=== PATIENT | male | born 1940 | race Caucasian/White ===

== ENCOUNTER → 2018-12-13 10:13 | Outpatient (CLI) | payer BC, SELFPAY ==
[2016-10-22 10:37] VITALS: BMI 22.5
[2018-12-13 12:27] LABS: Erythrocyte Sedimentation Rate 6 mm/hr (0-20)
[2018-12-13 12:28] LABS: Absolute Lymphocyte Count 1.45 X10^3/uL (0.83-4.51); Absolute Neutrophil Count 4.3 X10^3/uL (2.0-7.7); Basophil# 0.04 X10^3/uL; Basophil% 0.6 % (0-1); Eosinophil# 0.08 X10^3/uL; Eosinophils% 1.3 % (0-5); Hematocrit 46.6 % (40-54); Lymphocyte # 1.45 X10^3/ul (4.0); Lymphocyte % 22.8 % (19-41); Mean Corp Hgb Conc 32.2 g/dL (32-36); Mean Corpuscular Hgb 30.5 pg (27.0-32.0); Mean Corpuscular Volume 94.7 fL (80-94); Mean Platelet Vol. 11.3 fl (6.2-12.0); Monocyte# 0.53 X10^3/uL; Monocyte% 8.3 % (0-10); NRBC Flagged by Analyzer 0 % (0-5); Neutrophil # 4.25 X10^3/uL (2.7-7.7); Neutrophil % 66.7 % (47-70); Platelet Count 236 K/mm3 (150-450); RBC Distribution Width CV 14.3 % (11.6-14.6); RBC Distribution Width SD 50.3 fl (35.1-43.9); Red Blood Count 4.92 M/mm3 (4.6-6.2); White Blood Count 6.4 K/mm3 (4.4-11.0)
[2018-12-13 12:40] LABS: AST(SGOT) 17 U/L (15-37); Alanine Aminotransfer ALT/SGPT 24 U/L (16-61); Albumin, Serum 3.8 g/dL (3.2-5.0); Alkaline Phosphatase 89 U/L (45-117); Anion Gap 4 (5-15); BUN 16 mg/dL (7-18); BUN/Creat Ratio 17.3 RATIO (10-20); Calcium,Total 9.3 mg/dL (8.5-10.1); Chloride 105 mmol/L (98-107); Cholesterol 269 mg/dL (200); Creatinine, Serum 0.92 mg/dL (0.70-1.30); EST Glomerular Filtration Rate 85 mL/min (>60); Est Glom Filt Rate - Afr Amer 102 mL/min (>60); Globulin 3.9 g/dL (2.2-4.2); Glucose 103 mg/dL (74-106); High Density Lipoprotein 50 mg/dL; Potassium 4.6 mmol/L (3.5-5.1); Protein, Total 7.7 g/dL (6.4-8.2); Sodium Level 139 mmol/L (136-145); Triglycerides 148 mg/dL; Very Low Density Lipoprotein 30 mg/dL (5-40)
== END ==
PROVIDERS: Family Provider Family Medicine; PCP Family Medicine; Visit Provider Family Medicine
DX: C21.0 Malignant neoplasm of anus, unspecified (principal); Z13.220 Encounter for screening for lipoid disorders
CPT/HCPCS: 36415; 80053; 80061; 85025; 85652

== ENCOUNTER → 2018-12-30 10:56 | Outpatient (CLI) | payer BC, SELFPAY ==
[2016-10-22 10:37] VITALS: BMI 22.5
[2018-12-30 12:58] LABS: Anion Gap 8 (5-15); BUN 18 mg/dL (7-18); BUN/Creat Ratio 20.2 RATIO (10-20); Calcium,Total 9.1 mg/dL (8.5-10.1); Chloride 108 mmol/L (98-107); Creatinine, Serum 0.89 mg/dL (0.70-1.30); EST Glomerular Filtration Rate 88 mL/min (>60); Est Glom Filt Rate - Afr Amer 106 mL/min (>60); Glucose 102 mg/dL (74-106); Potassium 3.9 mmol/L (3.5-5.1); Sodium Level 143 mmol/L (136-145)
== END ==
PROVIDERS: Family Provider Family Medicine; PCP Family Medicine; Referring Provider Family Medicine; Visit Provider Family Medicine
DX: D64.9 Anemia, unspecified (principal)
CPT/HCPCS: 36415; 80048

== ENCOUNTER → 2019-03-03 15:16 | Outpatient (CLI) | payer MEDICARE, SELFPAY ==
--- NOTE | 2019-03-03 15:25 | RAD_ITS ---
STUDY: X-RAY - ABDOMEN/PELVIS REASON FOR EXAM: Male, 78 years old. Bloating TECHNIQUE: AP supine and upright views of the abdomen and pelvis. 3 images to complete anatomy. COMPARISON: CT abdomen and pelvis June 03, 2016 FINDINGS: Normal visualized lung bases. There is an unremarkable bowel gas pattern. There is no demonstrated free abdominal air. The visualized liver, spleen and kidneys are grossly normal in size and morphology. There are calcified phleboliths in the pelvis. Vascular calcifications are present. S-shaped scoliotic deformity convex left in the lower thoracic and right in the lumbar region noted with degenerative spondylosis. RAD/Abd Inc Decub and/or Erect IMPRESSION: No acute intra-abdominal abnormality identified. No evidence of bowel obstruction. Electronically Signed: Lisette King MD at 15:51 EST , Service support ,
== END ==
PROVIDERS: Family Provider Family Medicine; PCP Family Medicine; Referring Provider Family Medicine; Visit Provider Family Medicine
DX: R14.0 Abdominal distension (gaseous) (principal)
CPT/HCPCS: 74019

== ENCOUNTER → 2019-03-09 11:46 | Outpatient (CLI) | payer MEDICARE, SELFPAY ==
[2016-10-22 10:37] VITALS: BMI 22.5
[2019-03-09 14:29] LABS: AST(SGOT) 20 U/L (15-37); Alanine Aminotransfer ALT/SGPT 38 U/L (16-61); Albumin, Serum 3.9 g/dL (3.2-5.0); Alkaline Phosphatase 104 U/L (45-117); Anion Gap 6 (5-15); BUN 18 mg/dL (7-18); BUN/Creat Ratio 18.7 RATIO (10-20); Calcium,Total 9.6 mg/dL (8.5-10.1); Chloride 104 mmol/L (98-107); Cholesterol 187 mg/dL (200); Creatinine, Serum 0.96 mg/dL (0.70-1.30); EST Glomerular Filtration Rate 81 mL/min (>60); Est Glom Filt Rate - Afr Amer 98 mL/min (>60); Globulin 3.8 g/dL (2.2-4.2); Glucose 110 mg/dL (74-106); High Density Lipoprotein 55 mg/dL; Potassium 4.5 mmol/L (3.5-5.1); Protein, Total 7.7 g/dL (6.4-8.2); Sodium Level 139 mmol/L (136-145); Triglycerides 129 mg/dL; Very Low Density Lipoprotein 26 mg/dL (5-40)
== END ==
PROVIDERS: Family Provider Family Medicine; PCP Family Medicine; Referring Provider Family Medicine; Visit Provider Family Medicine
DX: E78.00 Pure hypercholesterolemia, unspecified (principal)
CPT/HCPCS: 36415; 80053; 80061

== ENCOUNTER → 2019-05-30 13:05 | Outpatient (CLI) | payer MEDICARE, SELFPAY ==
[2016-10-22 10:37] VITALS: BMI 22.5
[2019-05-30 15:52] LABS: Anion Gap 7 (5-15); BUN 14 mg/dL (7-18); BUN/Creat Ratio 16.1 RATIO (10-20); Calcium,Total 9.3 mg/dL (8.5-10.1); Chloride 102 mmol/L (98-107); Creatinine, Serum 0.87 mg/dL (0.70-1.30); EST Glomerular Filtration Rate 91 mL/min (>60); Est Glom Filt Rate - Afr Amer 110 mL/min (>60); Glucose 107 mg/dL (74-106); Potassium 3.6 mmol/L (3.5-5.1); Sodium Level 138 mmol/L (136-145)
[2019-05-30 17:40] LABS: Cholesterol 183 mg/dL (200); High Density Lipoprotein 51 mg/dL; Triglycerides 129 mg/dL; Very Low Density Lipoprotein 26 mg/dL (5-40)
== END ==
PROVIDERS: PCP Family Medicine; Referring Provider Family Medicine; Visit Provider Family Medicine
DX: E78.00 Pure hypercholesterolemia, unspecified (principal); R60.9 Edema, unspecified
CPT/HCPCS: 36415; 80048; 80061

== ENCOUNTER → 2019-12-28 10:13 | Outpatient (CLI) | payer MEDICARE, SELFPAY ==
[2016-10-22 10:37] VITALS: BMI 22.5
[2019-12-28 12:31] LABS: Hematocrit 45.8 % (40-54); Hemoglobin 14.8 g/dL (13.0-16.5); Mean Corp Hgb Conc 32.3 g/dL (32-36); Mean Corpuscular Hgb 29.9 pg (27.0-32.0); Mean Corpuscular Volume 92.5 fL (80-94); Mean Platelet Vol. 11.2 fl (6.2-12.0); Platelet Count 232 K/mm3 (150-450); RBC Distribution Width CV 14.2 % (11.6-14.6); RBC Distribution Width SD 47.9 fl (35.1-43.9); Red Blood Count 4.95 M/mm3 (4.6-6.2); White Blood Count 6.9 K/mm3 (4.4-11.0)
[2019-12-28 12:49] LABS: ALB/GLOB Ratio 1.1 RATIO (0.9-2.4); AST(SGOT) 15 U/L (15-37); Alanine Aminotransfer ALT/SGPT 27 U/L (16-61); Albumin, Serum 3.8 g/dL (3.2-5.0); Alkaline Phosphatase 89 U/L (45-117); Anion Gap 6 (5-15); BUN 16 mg/dL (7-18); BUN/Creat Ratio 18.1 RATIO (10-20); Calcium,Total 8.9 mg/dL (8.5-10.1); Chloride 105 mmol/L (98-107); Cholesterol 275 mg/dL (200); Creatinine, Serum 0.88 mg/dL (0.70-1.30); EST Glomerular Filtration Rate 89 mL/min (>60); Est Glom Filt Rate - Afr Amer 107 mL/min (>60); Globulin 3.6 g/dL (2.2-4.2); Glucose 102 mg/dL (74-106); High Density Lipoprotein 49 mg/dL; PSA,Total - Annual Screen 0.34 ng/mL (0.00-4.00); Potassium 4.2 mmol/L (3.5-5.1); Protein, Total 7.4 g/dL (6.4-8.2); Sodium Level 138 mmol/L (136-145); Triglycerides 149 mg/dL; Very Low Density Lipoprotein 30 mg/dL (5-40)
== END ==
PROVIDERS: PCP Family Medicine; Referring Provider Family Medicine; Visit Provider Family Medicine
DX: E78.00 Pure hypercholesterolemia, unspecified (principal); C21.0 Malignant neoplasm of anus, unspecified; N40.0 Benign prostatic hyperplasia without lower urinary tract symptoms; D64.9 Anemia, unspecified
CPT/HCPCS: 36415; 80053; 80061; 84153; 85027; G0103

== ENCOUNTER 2022-03-29 17:29 | Observation (INO) | payer MEDICARE, MEDICAID, SELFPAY ==
[2022-03-29 17:30] VITALS: BP 125/73; PULSE 118; RESP 34; TEMP 36.6; O2SAT 98; BMI 20.7
[2022-03-29 17:35] VITALS: TEMP 36.6; O2SAT 96
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
--- NOTE | 2022-03-29 17:45 | EKG12_ITS ---
Test Reason : CONFUSION Blood Pressure : / mmHG Vent. Rate : 117 BPM Atrial Rate : 117 BPM P-R Int : 178 ms QRS Dur : 078 ms QT Int : 312 ms P-R-T Axes : 035 037 040 degrees QTc Int : 435 ms Sinus tachycardia with frequent Premature ventricular complexes Low voltage QRS (Limb Leads) Confirmed by KIMBERLY WINSTON, MARA ([id number]), subeditor SHIVA STODDARD ([id number]) on 04/01/2022 10:40:55 AM Referred By: Confirmed By:MARA HARRIS MD
[2022-03-29 18:02] LABS: Absolute Lymphocyte Count 1.33 X10^3/uL (0.83-4.51); Absolute Neutrophil Count 7.7 X10^3/uL (2.0-7.7); Basophil# 0.02 X10^3/uL; Basophil% 0.2 % (0-1); Hematocrit 46.8 % (40-54); Hemoglobin 15.2 g/dL (13.0-16.5); Lymphocyte # 1.33 X10^3/ul (0.83-4.51); Lymphocyte % 13.3 % (19-41); Mean Corp Hgb Conc 32.5 g/dL (32-36); Mean Corpuscular Hgb 29.9 pg (27.0-32.0); Mean Corpuscular Volume 91.9 fL (80-94); Monocyte# 0.92 X10^3/uL; Monocyte% 9.2 % (0-10); NRBC Flagged by Analyzer 0 % (0-5); Platelet Count 184 K/mm3 (150-450); RBC Distribution Width CV 14.4 % (11.6-14.6); RBC Distribution Width SD 48.8 fl (35.1-43.9); Red Blood Count 5.09 M/mm3 (4.6-6.2)
--- NOTE | 2022-03-29 18:10 | RAD_ITS ---
INDICATION: Tachypnea EXAMINATION/TECHNIQUE: X-RAY - XR Chest 1 View COMPARISON: None. FINDINGS: The lungs are clear. Tortuous and calcified thoracic aorta. The heart is not enlarged. No pleural effusion or pneumothorax. Degenerative changes of the thoracic spine. RAD/Chest 1 View (Portable) IMPRESSION: No acute radiographic abnormalities. Electronically Signed: Ayan Bergman MD at 18:32 EST ,
[2022-03-29 18:21] LABS: ALB/GLOB Ratio 1.1 RATIO (0.9-2.4); AST(SGOT) 38 U/L (15-37); Alanine Aminotransfer ALT/SGPT 40 U/L (16-61); Albumin, Serum 3.9 g/dL (3.2-5.0); Alkaline Phosphatase 91 U/L (45-117); Anion Gap 10 (5-15); BUN 23 mg/dL (7-18); BUN/Creat Ratio 22.3 RATIO (10-20); Calcium,Total 8.5 mg/dL (8.5-10.1); Chloride 103 mmol/L (98-107); Creatinine, Serum 1.03 mg/dL (0.70-1.30); EST Glomerular Filtration Rate 74 mL/min (>60); Est Glom Filt Rate - Afr Amer 90 mL/min (>60); Estimated Creatinine Clearance 55.38 ml/min; Globulin 3.5 g/dL (2.2-4.2); Glucose 130 mg/dL (74-106); Potassium 3.9 mmol/L (3.5-5.1); Protein, Total 7.4 g/dL (6.4-8.2); Sodium Level 136 mmol/L (136-145)
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
[2022-03-29 18:53] LABS: Alcohol, Blood (Medical)-Serum < 3.0 mg/dL
[2022-03-29 19:38] VITALS: BP 125/77; PULSE 105; RESP 18; O2SAT 94
--- NOTE | 2022-03-29 19:46 | ED.RN ---
spoke with , Octavia to inquire about pt's previous drinking. states she does not know if he currently drinks alcohol.
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
[2022-03-29 22:10] VITALS: BMI 24.3
[2022-03-29 22:21] VITALS: BP 114/66; PULSE 96; RESP 20; TEMP 37.5; O2SAT 95
[2022-03-29] MEDS: Cephalexin 500 MG Capsule PO (22:29)
[2022-03-30] VITALS (9 sets, daily range): BP systolic 104–146; BP diastolic 66–102; PULSE 84–97; RESP 14–20; TEMP 36.6–37.5; O2SAT 95–97
[2022-03-30 07:37] LABS: Absolute Lymphocyte Count 1.11 X10^3/uL (0.83-4.51); Absolute Neutrophil Count 3.8 X10^3/uL (2.0-7.7); Basophil# 0.01 X10^3/uL; Basophil% 0.2 % (0-1); Eosinophil# 0.01 X10^3/uL; Eosinophils% 0.2 % (0-5); Hematocrit 41.4 % (40-54); Hemoglobin 13.7 g/dL (13.0-16.5); Lymphocyte # 1.11 X10^3/ul (0.83-4.51); Lymphocyte % 19.2 % (19-41); Mean Corp Hgb Conc 33.1 g/dL (32-36); Mean Corpuscular Hgb 30.6 pg (27.0-32.0); Mean Corpuscular Volume 92.4 fL (80-94); Mean Platelet Vol. 11.4 fl (6.2-12.0); Monocyte# 0.83 X10^3/uL; Monocyte% 14.4 % (0-10); NRBC Flagged by Analyzer 0 % (0-5); Neutrophil % 65.8 % (47-70); Platelet Count 168 K/mm3 (150-450); RBC Distribution Width CV 14.5 % (11.6-14.6); RBC Distribution Width SD 49.2 fl (35.1-43.9); Red Blood Count 4.48 M/mm3 (4.6-6.2); White Blood Count 5.8 K/mm3 (4.4-11.0)
[2022-03-30 07:45] LABS: Anion Gap 8 (5-15); BUN 23 mg/dL (7-18); BUN/Creat Ratio 29.9 RATIO (10-20); Calcium,Total 8.2 mg/dL (8.5-10.1); Chloride 105 mmol/L (98-107); Creatinine, Serum 0.77 mg/dL (0.70-1.30); EST Glomerular Filtration Rate 104 mL/min (>60); Est Glom Filt Rate - Afr Amer 126 mL/min (>60); Glucose 100 mg/dL (74-106); Potassium 3.3 mmol/L (3.5-5.1); Sodium Level 137 mmol/L (136-145); Thyroid Stim Hormone (TSH) 4.09 uIU/mL (0.358-3.74)
[2022-03-30] MEDS: Cephalexin 500 MG Capsule PO ×2 (10:39→21:05)
[2022-03-30] MEDS: Furosemide 20 MG Tablet PO (10:39)
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
[2022-03-30] MEDS: Acetaminophen 325 MG Tablet 650 MG PO (21:05)
[2022-03-30] MEDS: MELATONIN 3 MG TABLET PO (21:05)
[2022-03-31 03:47] VITALS: BP 118/92; PULSE 78; RESP 18; TEMP 36.9; O2SAT 98
[2022-03-31 07:29] VITALS: O2SAT 95
[2022-03-31 09:45] VITALS: BP 110/48; PULSE 84; RESP 18; TEMP 37.2; O2SAT 98
[2022-03-31] MEDS: Cephalexin 500 MG Capsule PO ×2 (10:53→20:40)
[2022-03-31] MEDS: Furosemide 20 MG Tablet PO (10:53)
[2022-03-31 16:09] VITALS: BP 136/73; PULSE 104; RESP 18; TEMP 36.7; O2SAT 98
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
[2022-03-31 20:40] VITALS: BP 113/64; PULSE 108; RESP 18; TEMP 37.6; O2SAT 92
[2022-03-31] MEDS: Acetaminophen 325 MG Tablet 650 MG PO (20:40)
[2022-04-01] VITALS (7 sets, daily range): BP systolic 101–150; BP diastolic 59–84; PULSE 84–100; RESP 16–18; TEMP 36.6–38.1; O2SAT 91–96
[2022-04-01] MEDS: Cephalexin 500 MG Capsule PO ×2 (08:48→21:07)
[2022-04-01] MEDS: Furosemide 20 MG Tablet PO (08:49)
[2022-04-01 09:04] LABS: Vitamin B12 230 pg/mL (211-911); Vitamin D,25 Hydroxy 10.9 ng/mL
--- NOTE | 2022-04-01 13:30 | CASEMGMT ---
Social Work? SW received pc from pt step son, Thien, early this morning wanting to discuss pt going to SNF. SW explained hospital can assist with pt going to SNf if pt demonstrates a skilled need. Otherwise pt and family would need to find options for private pay or work on setting up medicaid. SW then called pt , Octavia as Octavia would be legal decision maker since pt struggles with Dementia and not capable of making decisions for self. SW? introduced self and role at the hospital, explained same situation to as to step son earlier this day. Pt begged SW not to send pt home as cannot care for pt. stated has cancer and is on hospice herself andwhen pt is home pt becomes aggressive and agitated and cannot protect self from pt. SW read list of SNF providers including quality and resource use data and consistent with the patient?s preferred geographic region, medical needs, and insurance network from the [employer] Guide to pt . Pt stated wants the farthest SNF possible as fearful that pt will leave and attempt to come home if in [place]. [facility] then [facility]. Due to dementia status and likelihood of being difficult placement SW sent referral to both SNFs. Third choice would be [facility]. Pt has refused PT/OT. these notes will be needed for skilled placement. Will attempt to get pt to work with therapy team. PLAN: SNF, if demonstrates a need. MARNIE Joyner?
--- NOTE | 2022-04-01 16:02 | CASEMGMT ---
TC to pt to review ALANIZ form, no answer at this time. Pt is not A&O x3, unable to complete with pt. Will attempt at a later time.
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
[2022-04-02] VITALS (9 sets, daily range): BP systolic 94–117; BP diastolic 58–76; PULSE 77–96; RESP 16–18; TEMP 36.3–38.2; O2SAT 91–96
[2022-04-02] MEDS: Cephalexin 500 MG Capsule PO (07:30)
[2022-04-02] MEDS: Acetaminophen 325 MG Tablet 650 MG PO (07:30)
[2022-04-02] MEDS: Furosemide 20 MG Tablet PO (07:30)
--- NOTE | 2022-04-02 10:06 | CASEMGMT ---
Addendum entered by Liza Pearson 04/02/22 12:12: SW received pc from Haley at Hospice. Discussed placement for pt and need for pt , who is under Haley's care with Hospice, to complete medicaid ansley. , Octavia, unable to come to hospital to complete medicaid ansley and does not have internet to receive it electronically. Haley discussed intent to visit with Octavia this day and assist Octavai in completing Medicaid ansley. Haley informed that pt will also need medicaid for potential [facility] placement so Haley will make Medicaid ansley a priority. SW emailed medicaid ansley to Haley to print and help Octavia complete. Haley to fax medicaid ansley back to S or return via email to this SW to fax back to [facility]. MARNIE Joyner Original Note: Social Work SW called Hospice SW involved with pt's 's care, Haley. Haley left message from this SW regarding pt case and has knowledge to share regarding pt ability/inability to care for self. SW left message with contact number as Haley did not answer at this time. MARNIE Joyner
--- NOTE | 2022-04-02 16:54 | CASEMGMT ---
BETSY HERNANDEZ NOTE: TC to d/t pt is confused. ALANIZ form explained re: Observation status for treatment of debility. Explained hospitalization will be paid per his insurance policy for Outpatient billing and condition will continue to be evaluated for Inpt necessity. Also let know that [facility] sends paper in the billing packet with their phone number if questions arise. Form signed via telephone signature by this BETSY HERNANDEZ and BETSY Armenta, copy made and placed in chart, and original placed in pt's room. Casimiro AMADOR RN, CM
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
[2022-04-03 02:27] VITALS: BP 105/64; PULSE 80; RESP 18; TEMP 38.2; O2SAT 94
[2022-04-03] MEDS: Acetaminophen 325 MG Tablet 650 MG PO (02:35)
[2022-04-03 08:15] VITALS: BP 116/72; PULSE 72; RESP 16; TEMP 37; O2SAT 93
[2022-04-03] MEDS: Furosemide 20 MG Tablet PO (08:26)
--- NOTE | 2022-04-03 09:39 | CASEMGMT ---
Social Work SW received message that [facility] can accept. SW left VM and sent message via [employer] informing that pt is covid positive, can they still accept? Waiting on determination. Pt will need precert prior to admission. Updated clinicals sent via [employer]. Plan: [facility], pending precert MARNIE Taylor
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
--- NOTE | 2022-04-03 13:03 | CASEMGMT ---
Addendum entered by Mary Rasheed 04/03/22 13:53: Pt states she completed Medicaid application last evening with help of hospice SW. Phone call to SHAYY De Leon at [facility] and left requesting medicaid ansley be faxed to SHAYY. MARNIE Taylor Original Note: Social Work Return call from [facility] and they are now unable to accept pt. [facility] not responding. Phone call to pt Octavia and informed. Octaiva requesting a facility in [facility] or [facility]. [facility] unable to accept. Will await determination from other facilities. MARNIE Howard
[2022-04-03 14:10] VITALS: BP 94/51; PULSE 90; RESP 15; TEMP 37.2; O2SAT 94
--- NOTE | 2022-04-03 15:31 | CASEMGMT ---
SHAYY Note SHAYY called patient's , Octavia. Arin stated that patient talked about seeing a psychiatrist and tests and diagnosis when he was in and out of senior living. Arin said that patient's personality changes alot. Arin said that patient is not on any psychiatric medication, no mental health diagnosis that she is aware of, no counselor or casemanager that she is aware of. Arin said that she is not aware of any psychiatric hospitalizations for patient. Patient has not had any emergency MH services including [facility] or residential programming.n SHAYY completed PASSR with this information. Tanvi WIGGINS
--- NOTE | 2022-04-03 17:25 | CASEMGMT ---
Social Work The following facilities are unable to accept pt: [facility], [facility], [facility], [facility], [facility], [facility]. [facility] and [facility] have not responded. SHAYY spoke with Haley, pt's 's opinion polls survey worker. Update provided on the above issues with SNF placement. Haley states she is in close contact with pt and pt would be willing for pt to be in any SNF that can be found. Referral sent to [facility]. Haley states she assisted in completing Medicaid application online with confirmation #[id number]. SHAYY sent email to [facility] requesting pending Medicaid number. Plan: SNF, pending accepting facility and MARNIE Gonzáles
[2022-04-03 20:01] VITALS: BP 123/64; PULSE 97; RESP 16; TEMP 37.2; O2SAT 93
[2022-04-04 04:02] VITALS: BP 117/62; PULSE 86; RESP 16; TEMP 37.2; O2SAT 93
[2022-04-04 05:28] LABS: Absolute Lymphocyte Count 0.98 X10^3/uL (0.83-4.51); Absolute Neutrophil Count 3.4 X10^3/uL (2.0-7.7); Basophil# 0.01 X10^3/uL; Basophil% 0.2 % (0-1); Hemoglobin 13.5 g/dL (13.0-16.5); Lymphocyte # 0.98 X10^3/ul (0.83-4.51); Lymphocyte % 20.1 % (19-41); Mean Corp Hgb Conc 33.8 g/dL (32-36); Mean Corpuscular Hgb 30.1 pg (27.0-32.0); Mean Corpuscular Volume 89.3 fL (80-94); Monocyte# 0.46 X10^3/uL; Monocyte% 9.4 % (0-10); NRBC Flagged by Analyzer 0 % (0-5); Neutrophil # 3.41 X10^3/uL (2.7-7.7); Neutrophil % 69.9 % (47-70); Platelet Count 225 K/mm3 (150-450); RBC Distribution Width CV 14.2 % (11.6-14.6); RBC Distribution Width SD 46.4 fl (35.1-43.9); Red Blood Count 4.48 M/mm3 (4.6-6.2); White Blood Count 4.9 K/mm3 (4.4-11.0)
[2022-04-04 05:54] LABS: Anion Gap 9 (5-15); BUN 20 mg/dL (7-18); BUN/Creat Ratio 22.9 RATIO (10-20); Calcium,Total 8.1 mg/dL (8.5-10.1); Chloride 106 mmol/L (98-107); Creatinine, Serum 0.87 mg/dL (0.70-1.30); EST Glomerular Filtration Rate 90 mL/min (>60); Est Glom Filt Rate - Afr Amer 108 mL/min (>60); Estimated Creatinine Clearance 64.37 ml/min; Glucose 126 mg/dL (74-106); Potassium 3.1 mmol/L (3.5-5.1); Sodium Level 141 mmol/L (136-145)
[2022-04-04 08:55] VITALS: O2SAT 92
[2022-04-04 09:22] VITALS: BP 130/74; PULSE 99; RESP 16; TEMP 37.2; O2SAT 93
[2022-04-04] MEDS: Furosemide 20 MG Tablet PO (09:40)
[2022-04-04] MEDS: Potassium Chloride Oral Tablet 20 MEQ 60 MEQ PO (09:40)
--- NOTE | 2022-04-04 10:29 | CASEMGMT ---
Social work Phone call to pt and updated that several out of the area referrals have been made and are unable to accept pt. SW informed that [facility] is able to accept pt. Pt is agreeable to pt going to [facility]. SW updated [facility] and precert has been started at this time. Plan: [facility], pending precert MARNIE Taylor
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
[2022-04-04 15:26] VITALS: BP 106/53; PULSE 84; RESP 16; TEMP 36.4; O2SAT 93
--- NOTE | 2022-04-04 18:29 | CASEMGMT ---
Addendum entered by Mary Rasheed 04/04/22 18:30: PASRR completed in [facility] in the event of weekend discharge. MARNIE Frank Original Note: Social Work SW checked with SW and precert has not yet been obtained. Pt to remain at [facility] until precert given. CC to call nursing unit over the weekend should precert be obtained. Plan: [facility], pending precert MARNIE Frank
[2022-04-04 20:34] VITALS: BP 124/71; PULSE 86; RESP 16; TEMP 36.7; O2SAT 93
[2022-04-05 03:02] VITALS: BP 110/67; PULSE 95; RESP 18; TEMP 37.1; O2SAT 93
[2022-04-05 09:00] VITALS: BP 111/70; PULSE 87; RESP 16; TEMP 36.4; O2SAT 92
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
[2022-04-05] MEDS: Furosemide 20 MG Tablet PO (10:00)
[2022-04-05 14:15] VITALS: BP 106/64; PULSE 81; RESP 16; TEMP 36.4; O2SAT 98
[2022-04-05 20:07] VITALS: BP 101/50; PULSE 94; RESP 18; TEMP 37.2; O2SAT 92
[2022-04-06 03:00] VITALS: BP 121/64; PULSE 77; RESP 18; TEMP 37.2; O2SAT 92
--- NOTE | 2022-04-06 04:27 | NURSING ---
Addendum entered by Evan Cantu 04/06/22 04:29: noticed at 0300 Original Note: IV to RAC with notable redness. removed to see a 2cm open area with purulent drainage. 2x2s applied with pressure
[2022-04-06 08:05] LABS: Anion Gap 8 (5-15); BUN 20 mg/dL (7-18); BUN/Creat Ratio 25.3 RATIO (10-20); Calcium,Total 8.5 mg/dL (8.5-10.1); Chloride 106 mmol/L (98-107); Creatinine, Serum 0.79 mg/dL (0.70-1.30); EST Glomerular Filtration Rate 101 mL/min (>60); Est Glom Filt Rate - Afr Amer 122 mL/min (>60); Glucose 112 mg/dL (74-106); Potassium 3.5 mmol/L (3.5-5.1); Sodium Level 139 mmol/L (136-145)
[2022-04-06 09:00] VITALS: BP 116/55; PULSE 60; RESP 17; TEMP 36.9; O2SAT 94
[2022-04-06] MEDS: Furosemide 20 MG Tablet PO (09:20)
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
[2022-04-06 14:47] VITALS: BP 125/68; PULSE 70; RESP 16; TEMP 37.1; O2SAT 93
[2022-04-06 15:48] LABS: Xtra Tube EP Lab EXTRA TUBE
[2022-04-06 22:00] VITALS: BP 97/54; PULSE 80; RESP 18; TEMP 37; O2SAT 92
[2022-04-07 04:22] VITALS: BP 93/52; PULSE 82; RESP 18; TEMP 37.1; O2SAT 93
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
[2022-04-07 09:35] VITALS: BP 113/73; PULSE 106; RESP 18; TEMP 36.3; O2SAT 93
[2022-04-07] MEDS: Furosemide 20 MG Tablet PO (09:37)
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
--- NOTE | 2022-04-07 10:23 | CASEMGMT ---
Social Work? SHAYY notified pt family of discharge to [facility] today. Octavia voiced understanding for plan. Set up cot transportation [facility] for 11:00am. SHAYY faxed all discharge orders to [facility] via [facility] and notified of discharge time. SW notified pt nurse of transport time. SHAYY made copies of discharge orders and placed on pt chart. Sent original orders in envelope with pt upon discharge.?? Disposition: [facility], skilled, convalescent, level of care? MARNIE Joyner?
--- NOTE | 2022-04-07 10:56 | PHA.DC.MR ---
Pharmacy Service has performed discharge medication reconciliation for this patient. The patient's discharge medication list was reviewed for discrepancies and discrepancies were resolved. Home Medications furosemide 20 mg tablet 20 mg PO DAILY 09/10/16 acetaminophen 325 mg tablet (Tylenol) 650 mg PO Q6H PRN PRN Pain 1-10 Or Fever >100.7 #0 tabs 04/07/22 sennosides 8.6 mg-docusate sodium 50 mg tablet (Stool Softener-Stimulant Laxative) 2 tab PO BID PRN PRN Constipation #0 tabs 04/07/22
== END 2022-04-07 11:19 | disposition skilled nursing facility (03) ==
LOC: ED 21:22 → MS3 21:36
PROVIDERS: Family Medicine; Internal Medicine; Admitting Provider Hospitalist; Emergency Provider Emergency Medicine; PCP Family Medicine; Visit Provider Internal Medicine
DX: F03.918 Unspecified dementia, unspecified severity, with other behavioral disturbance (principal); R53.81 Other malaise; S01.81XD Laceration without foreign body of other part of head, subsequent encounter; V89.2XXD Person injured in unspecified motor-vehicle accident, traffic, subsequent encounter; R73.9 Hyperglycemia, unspecified; U07.1 COVID-19; Z87.891 Personal history of nicotine dependence; R26.2 Difficulty in walking, not elsewhere classified; Z79.899 Other long term (current) drug therapy
CPT/HCPCS: 36415; 70450; 71045; 80048; 80053; 82077; 82306; 82607; 84443; 85025; 87426; 87493; 87635; 93005; 97110; 97162; 97166; 97530; 97535; 97760; 99221; 99284; A4216; G0378; U0003; U0005

== ENCOUNTER → 2022-05-06 | Outpatient (REF) | payer MEDICARE, SELFPAY ==
[2022-05-06 09:24] LABS: Hematocrit 38.7 % (40-54); Hemoglobin 12.4 g/dL (13.0-16.5); Mean Corpuscular Hgb 30.2 pg (27.0-32.0); Mean Corpuscular Volume 94.4 fL (80-94); Mean Platelet Vol. 11.2 fl (6.2-12.0); Platelet Count 214 K/mm3 (150-450); RBC Distribution Width CV 15.9 % (11.6-14.6); RBC Distribution Width SD 54.9 fl (35.1-43.9); White Blood Count 5.3 K/mm3 (4.4-11.0)
[2022-05-06 10:35] LABS: Anion Gap 8 (5-15); BUN 18 mg/dL (7-18); BUN/Creat Ratio 25.5 RATIO (10-20); Calcium,Total 8.9 mg/dL (8.5-10.1); Chloride 110 mmol/L (98-107); EST Glomerular Filtration Rate 115 mL/min (>60); Est Glom Filt Rate - Afr Amer 139 mL/min (>60); Glucose 88 mg/dL (74-106); Sodium Level 142 mmol/L (136-145)
== END ==
LOC: OLS.SW 05:00
PROVIDERS: PCP Family Medicine; Visit Provider Family Medicine
DX: U07.1 COVID-19 (principal); F03.90 Unspecified dementia, unspecified severity, without behavioral disturbance, psychotic disturbance, mood disturbance, and anxiety; R26.89 Other abnormalities of gait and mobility
CPT/HCPCS: 36415; 80048; 85027

== ENCOUNTER → 2022-08-20 | Outpatient (CLI) | payer MEDICARE, SELFPAY ==
[2022-08-20 17:51] LABS: Hematocrit 45.5 % (40-54); Hemoglobin 14.6 g/dL (13.0-16.5); Mean Corp Hgb Conc 32.1 g/dL (32-36); Mean Corpuscular Hgb 29.7 pg (27.0-32.0); Mean Corpuscular Volume 92.5 fL (80-94); Mean Platelet Vol. 11.2 fl (6.2-12.0); Platelet Count 258 K/mm3 (150-450); RBC Distribution Width CV 13.8 % (11.6-14.6); RBC Distribution Width SD 46.8 fl (35.1-43.9); Red Blood Count 4.92 M/mm3 (4.6-6.2); White Blood Count 6.5 K/mm3 (4.4-11.0)
[2022-08-20 18:04] LABS: Vitamin B12 243 pg/mL (211-911); Vitamin D,25 Hydroxy 20.3 ng/mL
[2022-08-20 18:12] LABS: Cholesterol 270 mg/dL (200); High Density Lipoprotein 40 mg/dL; Thyroid Stim Hormone (TSH) 4.42 uIU/mL (0.358-3.74); Triglycerides 294 mg/dL; Very Low Density Lipoprotein 59 mg/dL (5-40)
[2022-08-20 18:51] LABS: Erythrocyte Sedimentation Rate 23 mm/hr (0-20)
[2022-08-21 14:32] LABS: T4 Free Direct 0.92 ng/dL (0.76-1.46)
== END | disposition home or self-care (01) ==
LOC: MFPLAB 15:12
PROVIDERS: PCP Family Medicine; Visit Provider Family Medicine
DX: R79.89 Other specified abnormal findings of blood chemistry (principal); G31.84 Mild cognitive impairment of uncertain or unknown etiology; E83.51 Hypocalcemia; E78.00 Pure hypercholesterolemia, unspecified; R60.0 Localized edema
CPT/HCPCS: 36415; 80061; 82306; 82607; 84439; 84443; 85027; 85652

== ENCOUNTER → 2022-11-18 | Outpatient (CLI) | payer MEDICARE, MEDICAID, SELFPAY ==
[2022-11-18 19:02] LABS: Anion Gap 8 (5-15); BUN 14 mg/dL (7-18); BUN/Creat Ratio 18.7 RATIO (10-20); Calcium,Total 9.4 mg/dL (8.5-10.1); Chloride 107 mmol/L (98-107); Cholesterol 183 mg/dL (200); Creatinine, Serum 0.75 mg/dL (0.70-1.30); EST Glomerular Filtration Rate 107 mL/min (>60); Est Glom Filt Rate - Afr Amer 129 mL/min (>60); Glucose 107 mg/dL (74-106); High Density Lipoprotein 55 mg/dL; Potassium 4.1 mmol/L (3.5-5.1); Sodium Level 140 mmol/L (136-145); T4 Free Direct 1.02 ng/dL (0.76-1.46); Triglycerides 163 mg/dL; Very Low Density Lipoprotein 33 mg/dL (5-40)
== END | disposition home or self-care (01) ==
PROVIDERS: PCP Family Medicine; Visit Provider Family Medicine
DX: E03.9 Hypothyroidism, unspecified (principal); R60.9 Edema, unspecified; E78.00 Pure hypercholesterolemia, unspecified
CPT/HCPCS: 36415; 80048; 80061; 84439; 84443

== ENCOUNTER → 2023-01-28 | Outpatient (CLI) | payer MEDICARE, MEDICAID, SELFPAY ==
--- NOTE | 2023-01-28 12:45 | ART_ITS ---
Reason For Study: PVD Procedure A bilateral lower extremity continuous wave Doppler with analog waveform analysis,segmental pressures,and ankle brachial indexes without exercise. Unsafe to exercise PT due to limp and unteady gait when walking. Left Segmental Pressures Left brachial= 148mmHg. Left thigh = 129mmHg. Left calf = 113mmHg. Left posterior tibial artery = >254mmHg. Left dorsalis pedis artery = 121mmHg. The left posterior tibial artery waveforms are triphasic. The left dorsalis pedis waveforms are biphasic. Right Segmental Pressures Right brachial= 140mmHg. Right thigh = 113mmHg. Right calf = 114mmHg. Right posterior tibial artery = >254mmHg. Right dorsalis pedis artery = 125mmHg. The right posterior tibial artery waveforms are biphasic. The right dorsalis pedis waveforms are monophasic. Indices The right resting ankle brachial index is 0.84. The right ankle brachial index by the posterior tibial artery is -NC-. The right ankle brachial index by the dorsalis pedis is 0.84. The left resting ankle brachial index is 0.82. The left ankle brachial index by the posterior tibial artery is -NC-. The left ankle brachial index by the dorsalis pedis is 0.82. VL/Lower Ext Art Exam w/ Exercise Interpretation Summary Biphasic and monophasic Doppler waveforms are noted at ankle level on the right . Triphasic and biphasic Doppler waveforms are noted at ankle level on the left. Pulse-volume r ecordings appear diminished at digital level on the right. Resting ankle-brachial indices are mo derately diminished bilaterally. 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 Ordering Physician: Miguel Martinez Referring Physician: CINDY MARTINEZ MD Performed By: Eva Lopez RVT, RDCS
== END | disposition home or self-care (01) ==
LOC: CVS 12:44
PROVIDERS: PCP Family Medicine; Referring Provider Family Medicine; Visit Provider Family Medicine
DX: I73.9 Peripheral vascular disease, unspecified (principal)
CPT/HCPCS: 93924

== ENCOUNTER → 2023-06-09 | Outpatient (CLI) | payer MEDICARE, MEDICAID, SELFPAY ==
[2023-06-09 18:15] LABS: Absolute Lymphocyte Count 1.88 X10^3/uL (0.83-4.51); Absolute Neutrophil Count 5.5 X10^3/uL (2.0-7.7); Basophil# 0.03 X10^3/uL; Basophil% 0.4 % (0-1); Eosinophil# 0.08 X10^3/uL; Hematocrit 45.2 % (40-54); Hemoglobin 14.5 g/dL (13.0-16.5); Lymphocyte # 1.88 X10^3/ul (0.83-4.51); Lymphocyte % 23.3 % (19-41); Mean Corp Hgb Conc 32.1 g/dL (32-36); Mean Corpuscular Volume 93.4 fL (80-94); Monocyte# 0.55 X10^3/uL; Monocyte% 6.8 % (0-10); NRBC Flagged by Analyzer 0 % (0-5); Neutrophil # 5.49 X10^3/uL (2.7-7.7); Neutrophil % 68.1 % (47-70); Platelet Count 255 K/mm3 (150-450); RBC Distribution Width CV 14.2 % (11.6-14.6); RBC Distribution Width SD 48.4 fl (35.1-43.9); Red Blood Count 4.84 M/mm3 (4.6-6.2); White Blood Count 8.1 K/mm3 (4.4-11.0)
[2023-06-09 18:24] LABS: ALB/GLOB Ratio 1.1 RATIO (0.9-2.4); AST(SGOT) 25 U/L (15-37); Alanine Aminotransfer ALT/SGPT 35 U/L (16-61); Albumin, Serum 3.8 g/dL (3.2-5.0); Alkaline Phosphatase 147 U/L (45-117); Anion Gap 7 (5-15); BUN 13 mg/dL (7-18); BUN/Creat Ratio 15.8 RATIO (10-20); Calcium,Total 9.4 mg/dL (8.5-10.1); Chloride 107 mmol/L (98-107); Cholesterol 178 mg/dL (200); Creatinine, Serum 0.82 mg/dL (0.70-1.30); EST Glomerular Filtration Rate 96 mL/min (>60); Est Glom Filt Rate - Afr Amer 116 mL/min (>60); Globulin 3.6 g/dL (2.2-4.2); Glucose 102 mg/dL (74-106); High Density Lipoprotein 52 mg/dL; Potassium 4.9 mmol/L (3.5-5.1); Protein, Total 7.4 g/dL (6.4-8.2); Sodium Level 139 mmol/L (136-145); Thyroid Stim Hormone (TSH) 2.94 uIU/mL (0.358-3.74); Triglycerides 112 mg/dL; Very Low Density Lipoprotein 22 mg/dL (5-40)
[2023-06-09 18:35] LABS: Vitamin B12 849 pg/mL (211-911); Vitamin D,25 Hydroxy 15.6 ng/mL
[2023-06-09 18:40] LABS: Erythrocyte Sedimentation Rate 11 mm/hr (0-20)
--- OUTSIDE RECORDS SUMMARY | 2023-06-10 02:07 | XMS RPT_ITS | CCD ---
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 gallbladder. No intrahepatic or extrahepatic biliary duct dilation. Left adrenal nodule measures 1.7 cm in greatest axial dimension and is 69 Hounsfield units.. Subcentimeter right adrenal gland nodule visualized.. The pancreas and spleen are unremarkable. Bilateral cortical and parapelvic renal cysts. The kidneys enhance symmetrically. No hydronephrosis. The urinary bladder is unremarkable. No acute abnormality within visualized GI tract.Unremarkable appendix. Small hiatal hernia. No pathologically enlarged or aggressive appearing lymph nodes. Nonaneurysmal, atherosclerotic aortoiliac arteries. No acute osseous abnormality. Moderate to severe degenerative changes. Chronic appearing left rib deformities seen. The thorax dictated separately. IMPRESSION: Indeterminate left adrenal nodule. Routine follow-up CT adrenal mass protocol advised No acute traumatic findings Interpreted by: Karlo Culver MD Preliminary Report By: Xu Guerra Electronically signed By Karlo Culver MD Dictated Date: 03/29/2022 3:02:42 PM Prelim Date: 03/29/2022 3:12:43 PM Sign Date: 03/29/2022 3:41:40 PM Ordering Provider: [facility] 03-29-2022 Note ORIGINAL EXAMINATION: CT OF THE CERVICAL SPINE WITHOUT CONTRAST 03/29/2022 2:09 pm TECHNIQUE: CT of the cervical spine was performed without the administration of intravenous contrast. Multiplanar reformatted images are provided for review. Automated exposure control, iterative reconstruction, and/or weight based adjustment of the mA/kV was utilized to reduce the radiation dose to as low as reasonably achievable. COMPARISON: None. HISTORY: ORDERING SYSTEM PROVIDED HISTORY: Reason for Exam: pain; trauma patient FINDINGS: Grade 1 anterolisthesis C3 with respect to C4 measures 5 mm. There is slight areas of retrolisthesis including C4 on C5 and C5 on C6. Severe loss of disc height and spurring seen from C4-5 through C6-7. Moderate multilevel facet and uncovertebral joint arthrosis visualized. No fracture is identified. No prevertebral soft tissue swelling. There are areas of bony foraminal and canal effacement suspected. There is moderate left foraminal stenosis suspected at C3-4. There is also moderate canal effacement suspected at this level. Other areas of significant canal and foraminal effacement would be better assessed with MRI. Cerumen noted in the right external auditory canal. Atherosclerosis seen of the cervical vasculature. Visualized lung apices are clear. IMPRESSION: Degenerative changes. No fracture Interpreted by: Karlo Culver MD Preliminary Report By: Karlo Culver MD Electronically signed By Karlo Culver MD Dictated Date: 03/29/2022 3:23:49 PM Prelim Date: 03/29/2022 3:26:57 PM Sign Date: 03/29/2022 3:26:57 PM Ordering Provider: VICKI [facility] 03-29-2022 Note ORIGINAL EXAMINATION: CT OF THE HEAD WITHOUT CONTRAST 03/29/2022 2:02 pm TECHNIQUE: CT of the head was performed without the administration of intravenous contrast. Automated exposure control, iterative reconstruction, and/or weight based adjustment of the mA/kV was utilized to reduce the radiation dose to as low as reasonably achievable. COMPARISON: None. HISTORY: ORDERING SYSTEM PROVIDED HISTORY: Reason for Exam: pain; trauma patient FINDINGS: There is no acute intracranial hemorrhage, mass, mass effect or abnormal extra-axial fluid collection. There is no CT evidence of acute infarct. The density in the larger dural venous sinuses is grossly normal. Scattered parenchymal hypodensities in the cerebral white matter are nonspecific but statistically most consistent with mild chronic microvascular angiopathy. Atherosclerotic calcifications are present in the cavernous carotid arteries bilaterally. There is proportionate enlargement of the ventricular system and cortical sulci compatible with parenchymal volume loss. The skull base and calvarium demonstrate no abnormality. The paranasal sinuses are clear. Included mastoid air cells are clear. A scalp contusion/laceration is noted on the left. IMPRESSION: No intracranial hemorrhage. No mass effect Scalp contusion/laceration Interpreted by: Karlo Culver MD Preliminary Report By: Karlo Culver MD Electronically signed By Karlo Culver MD Dictated Date: 03/29/2022 3:21:35 PM Prelim Date: 03/29/2022 3:23:44 PM Sign Date: 03/29/2022 3:23:44 PM Ordering Provider: VICKI BORJA [facility] 03-29-2022 Evaluation + Plan note Diagnostic Tests PendingToxicology Screen (AO) 03/29/22 [facility] Hospital course Narrative No data available for this section [facility] Summary Purpose Family History No Family History Records Found Advance Directives No Advanced Directives Records Found Additional Source Comments Care Team (unrecognized sect ion and content) Care Team Personnel Name: PHYSICIAN, NONE Position: Physician Member Role: Primary Care Physician Name: VICKI BORJA DO Position: ED Physician Member Role: ED Physician Address: Address: [address] [place] [address] (unrecognized sect ion and content) No Status Records Found INFORMATION SOURCE (unrecogn ized section and content) FOR RECORDS PERTAINING TO PATIENTS WHO ARE OR HAVE BEEN ENROLLED IN A CHEMICAL DEPENDENCY/SUBSTANCEABUSE PROGRAM, SOME INFORMATION MAY BE OMITTED. This clinical summary was aggregated from multiple sources. Caution should be exercised in using it in the provision of clinical care. This summary normalizes information from multiple sources, and as a consequence, information in this document may materially change the coding, format and clinical context of patient data. In addition, data may be omitted in some cases. CLINICAL DECISIONS SHOULD BE BASED ON THE PRIMARY CLINICAL RECORDS. [facility] provides no warranty or guarantee of the accuracy or completeness of information in this document.
== END | disposition home or self-care (01) ==
LOC: MFPLAB 15:14
PROVIDERS: PCP Family Medicine; Visit Provider Family Medicine
DX: E78.00 Pure hypercholesterolemia, unspecified (principal); C21.0 Malignant neoplasm of anus, unspecified; R79.89 Other specified abnormal findings of blood chemistry; E55.9 Vitamin D deficiency, unspecified; E03.9 Hypothyroidism, unspecified
CPT/HCPCS: 36415; 80053; 80061; 82306; 82607; 84443; 85025; 85652

== ENCOUNTER → 2024-10-24 | Outpatient (CLI) | payer MEDICARE, MEDICAID, SELFPAY | END | disposition home or self-care (01) | LOC: MFPLAB 14:48 → LABSPEC 14:49 | PROVIDERS: PCP Family Medicine; Referring Provider Family Medicine; Visit Provider Family Medicine | DX: N39.0 Urinary tract infection, site not specified (principal) | CPT/HCPCS: 87086 ==

== ENCOUNTER → 2024-11-10 | Outpatient (CLI) | payer MEDICARE, MEDICAID, SELFPAY ==
[2024-11-10 08:50] LABS: Mucous, Urine 0 SEEN /hpf (<or=2+); Squamous Epithelial Cells - UA 0 SEEN /hpf (0-5)
[2024-11-10 10:14] LABS: Color, Urine Brown (Yellow); Glucose, Dipstick Normal (Normal); Ketone-Dipstick 5 mg/dl (Negative); Leukocyte Esterase-Dipstick 25 /ul (Negative); Nitrite-Dipstick Negative (Negative); Occult Blood-Urine 250 /ul (Negative); Protein-Dipstick 500 mg/dl (Negative); Specific Gravity, Urine 1.020 (1.002-1.030)
[2024-11-10 10:28] LABS: Hematocrit 40.2 % (40-54); Hemoglobin 13.2 g/dL (13.0-16.5); Immature Granulocytes Count 0.020 X10^3/uL (0.0-0.0); Mean Corp Hgb Conc 32.8 g/dL (32-36); Mean Corpuscular Volume 90.7 fL (80-94); Mean Platelet Vol. 11.3 fl (6.2-12.0); NRBC Flagged by Analyzer 0 % (0-5); Platelet Count 211 K/mm3 (150-450); RBC Distribution Width CV 14.8 % (11.6-14.6); RBC Distribution Width SD 49.4 fl (35.1-43.9); Red Blood Count 4.43 M/mm3 (4.6-6.2); White Blood Count 6.8 K/mm3 (4.4-11.0)
[2024-11-10 10:33] LABS: Urine Bilirubin Dipstick 1 mg/dL (Negative)
[2024-11-10 10:34] LABS: Red Blood Cells-Urine > 100 SEEN /hpf (0-5)
[2024-11-10 10:39] LABS: Anion Gap 10 (5-15); BUN 19 mg/dL (4-19); BUN/Creat Ratio 24.8 RATIO (10-20); Calcium,Total 9.3 mg/dL (7.6-11.0); Carbon Dioxide 24.1 mmol/L (21.0-32.0); Chloride 108 mmol/L (98-108); Glucose 105 mg/dL (70-99); Potassium 4.2 mmol/L (3.3-5.1)
== END | disposition home or self-care (01) ==
LOC: MFPLAB 08:48
PROVIDERS: PCP Family Medicine; Visit Provider Family Medicine
DX: N39.0 Urinary tract infection, site not specified (principal); R31.9 Hematuria, unspecified
CPT/HCPCS: 36415; 80048; 81001; 85025

== ENCOUNTER → 2024-11-16 | Outpatient (CLI) | payer MEDICARE, MEDICAID, SELFPAY ==
--- NOTE | 2024-11-16 13:01 | US_ITS ---
PROCEDURE: KIDNEY AND BLADDER 11/16/2024 REASON FOR EXAM: HEMATURIA TECHNIQUE: KIDNEY AND BLADDER COMPARISON: Prior CT scan dated June 03, 2016. FINDINGS: Kidneys: Normal renal sizes, parenchymal thicknesses, and echotextures. Imboden: No evidence of hydronephrosis. Cysts or Masses: Multiple small cysts are seen in the right kidney. The largest cyst measures 8 mm x 8 mm x 6 mm. Multiple parapelvic cysts seen in the left kidney. The larger measures 1.8 cm by 1.6 cm 1.5 cm. Other: Nonobstructive tiny bilateral intrarenal calculi. RIGHT Kidney Size: 9.4 cm x 5.7 cm x 4.6 cm Volume: 127.3 mL Cortical Thickness (if discernible): 13 mm (>6mm is normal) LEFT Kidney Size: 9.7 cm x 5.5 cm x 5.1 cm Volume: 142.17 mL Cortical Thickness (if discernible): 20 mm (>6mm is normal) Prostate measures 3.5 cm 4.9 cm 3.6 cm. This causes indentation of the bladder base. US/Kidney and Bladder IMPRESSION: Bilateral renal cysts more prominent on the left side. No evidence of hydronephrosis. Tiny bilateral nonobstructive intrarenal calculi. Reading Location: [id number]
== END | disposition home or self-care (01) ==
PROVIDERS: PCP Family Medicine; Referring Provider Family Medicine; Visit Provider Family Medicine
DX: R31.9 Hematuria, unspecified (principal)
CPT/HCPCS: 76770

== ENCOUNTER → 2024-12-30 | Outpatient (CLI) | payer MEDICARE, MEDICAID, SELFPAY ==
[2024-12-30 11:32] LABS: Mucous, Urine 0 SEEN /hpf (<or=2+); Squamous Epithelial Cells - UA 0 SEEN /hpf (0-5)
[2024-12-30 15:21] LABS: Color, Urine Yellow (Yellow); Glucose, Dipstick Normal (Normal); Ketone-Dipstick Negative (Negative); Leukocyte Esterase-Dipstick Negative /ul (Negative); Nitrite-Dipstick Negative (Negative); Occult Blood-Urine 50 /ul (Negative); Protein-Dipstick 30 mg/dl (Negative); Specific Gravity, Urine 1.020 (1.002-1.030); Urine Bilirubin Dipstick Negative (Negative)
[2024-12-30 15:31] LABS: Red Blood Cells-Urine 0-5 SEEN /hpf (0-5)
== END | disposition home or self-care (01) ==
LOC: LABSPEC 11:31
PROVIDERS: PCP Family Medicine; Visit Provider Family Medicine
DX: R31.9 Hematuria, unspecified (principal)
CPT/HCPCS: 81001